=== PATIENT | female | born 1975 | race Two or more races ===

== ENCOUNTER 2020-01-23 10:12 | Inpatient (IN) | payer BC ==
[~2020-01-23] VITALS: Ht 154.9 cm; Wt 104.0 kg
[2020-01-23] MEDS ORDERED: SODIUM CHLORIDE 0.9% 1,000 ML IV ONE ×2 (10:45→15:15)
[2020-01-23] MEDS ORDERED: ONDANSETRON HCL 4MG/2ML INJ IV ONE ×2 (10:45→14:45)
[2020-01-23] MEDS ORDERED: MORPHINE SULFATE 4 MG/ML CPJ (NOT FOR IM USE) IV ONE ×2 (11:30→13:45)
[2020-01-23 11:39] LABS: BASOPHILS % 0.2 % (0.0-2.0); HEMATOCRIT. 33.4 % (36.0-48.0); HEMOGLOBIN. 11.2 g/dL (12.0-16.0); LYMPHOCYTES % 20.6 % (20.0-50.0); MEAN CORPUSCULAR HEMOGLOBIN 31.4 pg (28.0-32.0); MEAN CORPUSCULAR VOLUME 93.4 fL (81.0-99.0); MEAN PLATELET VOLUME 8.4 fl (7.4-10.4); MONOCYTES % 5.8 % (2.0-8.0); NEUTROPHILS % 72.4 % (40.0-76.0); PLATELET 269 x1000/uL (130-400); RED BLOOD CELL COUNT 3.57 mill/uL (4.2-5.4); RED CELL DISTRIBUTION WIDTH 13.8 % (11.6-14.6)
[2020-01-23 11:52] LABS: CHLORIDE 106 mEq/L (98-107)
[2020-01-23 11:53] LABS: PROTHROMBIN TIME 10.7 sec (9.6-11.0)
[2020-01-23 12:23] LABS: CLARITY URINE CLOUDY (CLEAR); COLOR URINE YELLOW (YELLOW); KETONES URINE NEGATIVE (NEGATIVE); LEUKOCYTE ESTERASE URINE NEGATIVE (NEGATIVE); NITRITE URINE NEGATIVE (NEGATIVE); OCCULT BLOOD URINE NEGATIVE (NEGATIVE); PROTEIN URINE TRACE (NEGATIVE); SPECIFIC GRAVITY URINE 1.019 (1.005-1.030); UROBILINOGEN URINE 0.2 E.U./dL (0.2-1.0)
[2020-01-23 12:44] LABS: CANNABINOID URINE SCREEN NEGATIVE (NEGATIVE); PHENCYCLIDINE URINE SCREEN NEGATIVE (NEGATIVE)
[2020-01-23 12:45] LABS: *AMPHETAMINES SCREEN URINE NEGATIVE (NEGATIVE); *BARBITURATES SCREEN URINE NEGATIVE (NEGATIVE); *BENZODIAZEPINES SCREEN URINE NEGATIVE (NEGATIVE); *COCAINE SCREEN URINE NEGATIVE (NEGATIVE); METHADONE URINE SCREEN NEGATIVE (NEGATIVE); OPIATES URINE SCREEN NEGATIVE (NEGATIVE)
[2020-01-23] MEDS ORDERED: MORPHINE SULFATE 2 MG/ML CPJ (NOT FOR IM USE) IV ONE (15:15)
[2020-01-23] MEDS ORDERED: METRONIDAZOLE 500 MG PREMIX 100 ML IV ONE (15:15)
[2020-01-23] MEDS ORDERED: LEVOFLOXACIN 500MG PREMIX 100 ML IV ONE (15:15)
[2020-01-23 17:17] VITALS: BP 102/60
[2020-01-23] MEDS ORDERED: ONDANSETRON HCL 4MG/2ML INJ IV PRN (18:15)
[2020-01-23 20:00] VITALS: BP 101/58
[2020-01-23] MEDS: ACETAMINOPHEN 325MG TABLET PO PRN (20:14)
[2020-01-23] MEDS: METRONIDAZOLE 500 MG PREMIX 100 ML IV SCH (22:52)
[2020-01-24] VITALS: BP 100/56
[2020-01-24] MEDS: ONDANSETRON HCL 4MG/2ML INJ IV PRN ×2 (00:38→10:07)
[2020-01-24] MEDS: MORPHINE SULFATE 2 MG/ML CPJ (NOT FOR IM USE) IV PRN ×2 (01:23→10:08)
[2020-01-24 04:00] VITALS: BP 95/59
[2020-01-24] MEDS: METRONIDAZOLE 500 MG PREMIX 100 ML IV SCH ×2 (06:32→14:37)
[2020-01-24 07:13] LABS: BASOPHILS % 0.2 % (0.0-2.0); EOSINOPHILS % 0.3 % (0.0-5.0); HEMATOCRIT. 29.6 % (36.0-48.0); LYMPHOCYTES % 13.4 % (20.0-50.0); MEAN CORPUSCULAR HEMOGLOBIN 31.1 pg (28.0-32.0); MEAN CORPUSCULAR VOLUME 92.1 fL (81.0-99.0); MEAN PLATELET VOLUME 8.3 fl (7.4-10.4); MONOCYTES % 7.3 % (2.0-8.0); NEUTROPHILS % 78.8 % (40.0-76.0); PLATELET 233 x1000/uL (130-400); RED BLOOD CELL COUNT 3.22 mill/uL (4.2-5.4); RED CELL DISTRIBUTION WIDTH 13.9 % (11.6-14.6)
[2020-01-24 07:50] LABS: CHLORIDE 106 mEq/L (98-107)
[2020-01-24 08:00] VITALS: BP 108/60
[2020-01-24 12:00] VITALS: BP 120/78
[2020-01-24 16:00] VITALS: BP 110/78
[2020-01-24] MEDS ORDERED: LEVOFLOXACIN 500MG PREMIX 100 ML IV SCH (16:00)
[2020-01-24 20:00] VITALS: BP 145/76
[2020-01-25] VITALS: BP 95/49
[2020-01-25] MEDS: ACETAMINOPHEN 325MG TABLET PO PRN (00:24)
[2020-01-25 04:00] VITALS: BP 102/55
[2020-01-25] MEDS: METRONIDAZOLE 500 MG PREMIX 100 ML IV SCH ×2 (06:03)
[2020-01-25] MEDS: ONDANSETRON HCL 4MG/2ML INJ IV PRN (06:06)
[2020-01-25 08:00] VITALS: BP 109/66
[2020-01-25 12:00] VITALS: BP 108/56
[2020-01-25] MEDS ORDERED: FLUC150T41 MT (13:26)
== END 2020-01-25 17:25 | disposition home or self-care (01) | DRG 392 ==
LOC: ER 10:12 → EDBEDREQTM 15:37 → ENRESERV 15:57 → 8WST 17:07
PROVIDERS: ADMIT Internal Medicine; ATTEND Internal Medicine
DX: K57.32 Diverticulitis of large intestine without perforation or abscess without bleeding (principal); Z68.41 Body mass index [BMI] 40.0-44.9, adult; E66.9 Obesity, unspecified; D64.9 Anemia, unspecified; Z90.49 Acquired absence of other specified parts of digestive tract; Z90.710 Acquired absence of both cervix and uterus
CPT/HCPCS: 36415; 74176; 76856; 76857; 80048; 80053; 80305; 81003; 83605; 85025; 93005; 99285; J1956; J2270; J2405; J3490; J7030

== ENCOUNTER → 2020-02-26 | Outpatient (CLI) | payer BC ==
[~2020-02-26] MED LIST: FLUC150T41 MT
== END | disposition home or self-care (01) ==
LOC: MRI 10:45
PROVIDERS: ATTEND Internal Medicine
DX: S83.242A Other tear of medial meniscus, current injury, left knee, initial encounter (principal); M17.12 Unilateral primary osteoarthritis, left knee; M94.262 Chondromalacia, left knee; X58.XXXA Exposure to other specified factors, initial encounter; Y93.89 Activity, other specified; Y92.89 Other specified places as the place of occurrence of the external cause; Y99.8 Other external cause status
CPT/HCPCS: 73721